=== PATIENT | male | born 1985 | race African-American/Black ===

== ENCOUNTER 2016-11-16 02:40 | Emergency (ER) | payer MEDICARE, OTHER ==
[~2016-11-16] VITALS: Ht 185.4 cm; Wt 95.3 kg
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
[2016-11-16 03:50] VITALS: BP 113/64
[2016-11-16 03:52] VITALS: BP 113/64
== END 2016-11-16 03:52 | disposition home or self-care (01) ==
LOC: EMR 03:22
DX: T83.010A Breakdown (mechanical) of cystostomy catheter, initial encounter (principal); G82.20 Paraplegia, unspecified; Y84.6 Urinary catheterization as the cause of abnormal reaction of the patient, or of later complication, without mention of misadventure at the time of the procedure; Y92.9 Unspecified place or not applicable; Y99.8 Other external cause status
CPT/HCPCS: 51702

== ENCOUNTER 2017-03-12 22:31 | Emergency (ER) | payer MEDICARE, OTHER ==
[~2017-03-12] VITALS: Ht 149.9 cm; Wt 90.7 kg
[2017-03-13] MEDS ORDERED: Norco 5mg/325mg tab ORAL ONE (02:45)
[2017-03-13] MEDS ORDERED: cefTRIAXone 1 GM in NS 55 ML IVPB ONE (04:15)
[2017-03-13 04:19] LABS: APPEARANCE,URINE CLEAR; KETONES,URINE 1+ (NEGATIVE); LEUKOCYTE ESTERASE ,URINE 3+ (NEGATIVE); NITRITE,URINE NEGATIVE (NEGATIVE); PH,URINE 8 (4.5-8.0); PROTEIN,URINE 2+ (NEGATIVE); UROBILINOGEN,URINE 4 MG/DL (0.0-1.0)
[2017-03-13 04:31] LABS: BACTERIA,URINE FEW /HPF; RBC,URINE TNTC /HPF (0 - 0); WBC,URINE 40-60 /HPF (0 - 0)
[2017-03-13 05:06] VITALS: BP 130/78
[2017-03-13 05:15] VITALS: BP 130/78
[2017-03-13] MEDS ORDERED: KEFLEX500 MG ORAL (05:51)
[2017-03-13] MEDS ORDERED: NITROFURANTOIN100 M2 ORAL (05:51)
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
== END 2017-03-13 05:15 | disposition left against medical advice (07) ==
LOC: EMR 23:42
DX: T83.028A Displacement of other urinary catheter, initial encounter (principal); Y83.8 Other surgical procedures as the cause of abnormal reaction of the patient, or of later complication, without mention of misadventure at the time of the procedure; Y92.89 Other specified places as the place of occurrence of the external cause; N39.0 Urinary tract infection, site not specified
CPT/HCPCS: 81003; 87086; 99284

== ENCOUNTER 2017-04-28 22:40 | Emergency (ER) | payer MEDICARE, OTHER ==
[~2017-04-28] VITALS: Ht 185.4 cm; Wt 88.5 kg
[~2017-04-28 22:40] MED LIST: KEFLEX500 MG ORAL; NITROFURANTOIN100 M2 ORAL
[2017-04-28 23:18] VITALS: BP 110/70
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
[2017-04-28 23:29] VITALS: BP 110/70
== END 2017-04-28 23:32 | disposition home or self-care (01) ==
LOC: EMR 22:59
DX: T83.090A Other mechanical complication of cystostomy catheter, initial encounter (principal); Y84.6 Urinary catheterization as the cause of abnormal reaction of the patient, or of later complication, without mention of misadventure at the time of the procedure; Y92.9 Unspecified place or not applicable
CPT/HCPCS: 51702

== ENCOUNTER 2017-06-17 23:33 | Emergency (ER) | payer MEDICARE, OTHER ==
[~2017-06-17] VITALS: Ht 185.4 cm; Wt 86.2 kg
[2017-06-17 23:50] VITALS: BP 97/63
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
[2017-06-18 01:09] LABS: APPEARANCE,URINE SLIGHTLY CLOUDY; KETONES,URINE NEGATIVE (NEGATIVE); LEUKOCYTE ESTERASE ,URINE 3+ (NEGATIVE); NITRITE,URINE POSITIVE (NEGATIVE); PH,URINE 7 (4.5-8.0); PROTEIN,URINE 2+ (NEGATIVE); UROBILINOGEN,URINE 4 MG/DL (0.0-1.0)
[2017-06-18 01:10] VITALS: BP 101/62
[2017-06-18 01:52] LABS: RBC,URINE TNTC /HPF (0 - 0); WBC,URINE 15-20 /HPF (0 - 0)
[2017-06-18 01:53] LABS: BACTERIA,URINE MODERATE /HPF; SQUAMOUS EPITHELIAL CELL,UR FEW /LPF (NONE/OCC)
[2017-06-21] MEDS ORDERED: BACTRIM DS TAB1 EAC1 ORAL (14:51)
== END 2017-06-18 01:10 | disposition home or self-care (01) ==
LOC: EMR 06-18 00:20
DX: Z46.6 Encounter for fitting and adjustment of urinary device (principal); Z89.612 Acquired absence of left leg above knee; Z89.611 Acquired absence of right leg above knee; Z87.828 Personal history of other (healed) physical injury and trauma
CPT/HCPCS: 81003; 87086; 87181; 99282

== ENCOUNTER 2017-07-17 19:13 | Emergency (ER) | payer MEDICARE, OTHER ==
[~2017-07-17] VITALS: Ht 61 cm; Wt 95.3 kg
[~2017-07-17 19:13] MED LIST changes: +BACTRIM DS TAB1 EAC1 ORAL
[2017-07-17 19:37] VITALS: BP 130/75
--- NOTE | 2017-07-17 19:38 | Emergency Room Report ---
History of Present Illness General Chief Complaint: General Complaint Source: Patient (KYM WAGNER M.D.) Present Illness HPI 31YOM with dislodged suprapubic cath since yesterday Fell out Went to [facility] - waited "for hours for Urologist" who never showed up Patient ?left AMA Has been here multiple times for replacement d/t dysfunction Here 06/18 - had replaced. had outpatient Abx Bactrim based on previous Urine Cx Denies abd pain, nausea/vomiting Still occasional urine from penis Has never followed up outpatient with Urologist in 1 year of suprapubic cath was here 06/18 for same based on providencia, was tx with bactrim outpatient which he completed (KYM WAGNER M.D.) Allergies: Coded Allergies: No Known Allergies (Unverified , 07/17/17) Patient History Past Medical History: see triage record, old chart reviewed Past Surgical History: other - Suprapubic cath Pertinent Family History: none Social History: Denies: smoking, alcohol use, drug use Immunizations: UTD Reviewed Nursing Documentation: PMH: Agreed, PSxH: Agreed (KYM WAGNER M.D.) Nursing Documentation-PMH Past Medical History: No History, Except For (KYM WAGNER M.D.) Review of Systems All Other Systems: negative except mentioned in HPI (KYM WAGNER M.D.) Physical Exam Sp02 EP Interpretation: reviewed, normal General Appearance: normal inspection, well appearing, no apparent distress, alert, GCS 15, non-toxic, obese, other - Patient without sensation to lower abdomen/lower extremities Head: normocephalic, atraumatic Eyes: bilateral eye PERRL, bilateral eye EOMI ENT: normal ENT inspection, hearing grossly normal, normal voice Neck: normal inspection, full range of motion, supple, no bony tend Respiratory: normal inspection, lungs clear, normal breath sounds, no respiratory distress, no retraction, no wheezing Cardiovascular #1: regular rate, rhythm, no edema Gastrointestinal: normal inspection, normal bowel sounds, non tender, soft, no guarding, no hernia Genitourinary: no CVA tenderness, other - Suprapubic site does NOT have catheter in place. Skin breakdown inferior to site. 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, speech normal Psychiatric: normal inspection, judgement/insight normal, mood/affect normal Skin: normal inspection, normal color, no rash (KYM WAGNER M.D.) Procedures Additional Procedure Procedure Narrative Suprapubic catheter Using sterile technique Tract cleaned on outside with betadine Sterile gloves worn Unable to pass 14F on multiple attempts ?tract closed Gomez also attempted to be placed via penis but met with resistance (KYM WAGNER M.D.) Medical Decision Making Diagnostic Impression: Primary Impression: Suprapubic catheter dysfunction Qualified Codes: T83.010D - Breakdown (mechanical) of cystostomy catheter, subsequent encounter ER Course Unable to replace in ED, ?closed tract Unable to pass gomez thru penis as well Dr Carranza consulted - came to ED and placed suprapubic catheter CT Abd/pelvis ordered to confirm position Signed out to Dr Geronimo at 1030 to followup results of CT (KYM WAGNER M.D.) ER Course Patient signed out to me. His suprapubic catheter was dislodged. The urologist came in because I had a hard time putting one in. He places to the catheter with difficulty. There was not much urine output. I did a bedside ultrasound and the bladder was actually empty. I order a CT scan to confirm placement. The catheter is in good position. Patient was discharged home. (KIRSTIE GERONIMO M.D.) CT/MRI/US Diagnostic Results CT/MRI/US Diagnostic Results : Imaging Test Ordered: CT abdomen and pelvis Impression read by radiologist. Catheter good position. (KIRSTIE GERONIMO M.D.) Status: improved (KYM WAGNER M.D.) Status: improved (KIRSTIE GERONIMO M.D.) Disposition: HOME, SELF-CARE Condition: Stable Scripts Trimethoprim/Sulfamethoxazole 160/800* (BACTRIM DS TABLET*) 1 Each Tablet 1 TAB ORAL Q12H, #14 TAB 0 Refills Prov: KIRSTIE GERONIMO M.D. 07/17/17 Additional Instructions: Followup with your DrCraig in 7 days. Return if symptom worsen. KYM WAGNER M.D. Jul 17, 2017 19:38 KIRSTIE GERONIMO M.D. Jul 17, 2017 23:20
[2017-07-17 21:45] VITALS: BP 128/86
[2017-07-17 23:00] VITALS: BP 133/84
[2017-07-17] MEDS ORDERED: BACTRIM DS TAB1 EAC1 ORAL (23:21)
[2017-07-17 23:31] VITALS: BP 133/84
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
== END 2017-07-17 23:31 | disposition home or self-care (01) ==
LOC: EMR 20:16
DX: T83.0 Mechanical complication of urinary catheter (principal); Y84.6 Urinary catheterization as the cause of abnormal reaction of the patient, or of later complication, without mention of misadventure at the time of the procedure; Z89.512 Acquired absence of left leg below knee; Z89.511 Acquired absence of right leg below knee
CPT/HCPCS: 51702; 74176; 99284

== ENCOUNTER 2017-12-10 11:41 | Emergency (ER) | payer MEDICARE, OTHER ==
[~2017-12-10] VITALS: Ht 121.9 cm; Wt 90.7 kg
[2017-12-10 13:20] VITALS: BP 127/80
--- NOTE | 2017-12-10 13:22 | Emergency Room Report ---
History of Present Illness General Chief Complaint: General Complaint Source: Patient Present Illness HPI 32-year-old male presents to the emergency department complaining of suprapubic urinary catheter dysfunction. Patient reports that approximately 4 hours ago his urinary catheter came out. Patient denies currently having something in place. Patient denies abdominal pain or tenderness. Patient denies fevers or chills. Patient states he usually will have his doctor come to his house when he has problems with his catheter however he is unable to see his urologist today. Allergies: Coded Allergies: No Known Allergies (Unverified , 07/17/17) Patient History Past Medical History: see triage record, other - bilateral btka Pertinent Family History: none Reviewed Nursing Documentation: PMH: Agreed, PSxH: Agreed Nursing Documentation-PMH Past Medical History: No History, Except For Review of Systems All Other Systems: negative except mentioned in HPI Physical Exam Vital Signs Date Time Temp Pulse Resp B/P (MAP) Pulse Ox O2 Delivery O2 Flow Rate FiO2 12/10/17 12:04 97.2 89 16 121/80 99 Room Air Sp02 EP Interpretation: reviewed, normal General Appearance: no apparent distress, alert, GCS 15, non-toxic Head: normocephalic, atraumatic ENT: hearing grossly normal, normal voice Neck: full range of motion Respiratory: lungs clear, normal breath sounds, speaking full sentences Cardiovascular #1: regular rate, rhythm Gastrointestinal: non tender, soft, non-distended, other - no presence of suprapubic catheter only ostomy site, pt. still has leg bag on . Rectal: deferred Genitourinary: normal inspection Musculoskeletal: other - bilateral below the knee amputations, wheelchair bound. Neurologic: alert, oriented x3, responsive, speech normal, grossly normal Psychiatric: judgement/insight normal Skin: normal color, warm/dry, well hydrated Medical Decision Making PA Attestation Dr. Liu is my supervising Physician whom patient management has been discussed with. Diagnostic Impression: Primary Impression: Suprapubic catheter dysfunction Qualified Codes: T83.010A - Breakdown (mechanical) of cystostomy catheter, initial encounter ER Course 32-year-old male presents to the emergency department complaining of suprapubic urinary catheter dysfunction. Patient reports that approximately 4 hours ago his urinary catheter came out. Patient denies currently having something in place. Patient denies abdominal pain or tenderness. Patient denies fevers or chills. Patient states he usually will have his doctor can't his house when he has problems with his catheter however he is unable to see his urologist today. Ddx considered but are not limited to UTi , Pyelo, STI, Stone, Cystitis, Cath blockage. Vital signs: are WNL, pt. is afebrile H&PE are most consistent with Displaced Supra-pubic urinary catheter. ORDERS: - none On last ED visit patient required emergent urologist intervention and placement of new catheter with guidewire due to difficulty in replacing urinary catheter. I involved supervising physician whom agreed to attempt replacement of urinary catheter under ultrasound guidance. 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 Discussed with patient that he would need to sign AMA if he leaves prior to suprapubic cath interventions. DISPOSITION: Pt. Requests AMA. - At this time the patient is requesting to leave AGAINST MEDICAL ADVICE. I believe that this patient has the capacity to make decisions on His own. I discussed with the patient the risks of leaving AMA. Some of these risks include delay in diagnosis and treatment, as well as worsening of symptoms, organ damage, and permanent disability or even . After discussing these risks with the patient. He continues to express His want to leave AGAINST MEDICAL ADVICE. I encouraged the patient to return at any time, and that he will be welcome here in the emergency department to continue medical management. Last Vital Signs Date Time Temp Pulse Resp B/P (MAP) Pulse Ox O2 Delivery O2 Flow Rate FiO2 12/10/17 12:04 97.2 89 16 121/80 99 Room Air Disposition: AGAINST MEDICAL ADVICE Condition: Unknown Additional Instructions: You are leaving AMA, before results of your diagnostic lab work are available. This can cause delayed diagnosis as well as treatment, and ultimately leading up to worsening of symptoms, damage to organs, permanent disability or even . You are encouraged to return to the ER at any time if you want to continue your evaluation Sandie Martin Dec 10, 2017 13:21
== END 2017-12-10 13:20 | disposition left against medical advice (07) ==
LOC: EMR 13:05
DX: T83.090A Other mechanical complication of cystostomy catheter, initial encounter (principal); Y84.6 Urinary catheterization as the cause of abnormal reaction of the patient, or of later complication, without mention of misadventure at the time of the procedure; Y92.9 Unspecified place or not applicable
CPT/HCPCS: 99282

== ENCOUNTER 2018-05-12 17:48 | Emergency (ER) | payer MEDICARE, OTHER ==
[~2018-05-12] VITALS: Ht 121.9 cm; Wt 86.2 kg
--- NOTE | 2018-05-12 19:28 | Emergency Room Report ---
History of Present Illness General Chief Complaint: General Complaint Source: Patient (Chicho Quinn) Present Illness HPI 52-year-old male patient presents ER requesting suprapubic catheter change. Reports his head catheter in since 2015, last changed Mar 26 2018. Reports normally goes to the urologist had changed however was out of town and missed his appointment this month. Reports next appointment at the end of May. Reports the "catheter is clogged", does not swollen now. Denies foul smell, hematuria. Denies fever, chest pain, abdominal pain, flank pain, vomiting. Denies other acute symptoms. Has previously been seen in this ER for similar complaints. (Chicho Quinn) Allergies: Coded Allergies: No Known Allergies (Unverified , 07/17/17) Patient History Past Medical History: see triage record Reviewed Nursing Documentation: PMH: Agreed; PSxH: Agreed (Chicho Quinn) Nursing Documentation-PMH Past Medical History: No History, Except For (Chicho Quinn) Review of Systems All Other Systems: negative except mentioned in HPI (Chicho Quinn) Physical Exam Vital Signs Date Time Temp Pulse Resp B/P (MAP) Pulse Ox O2 Delivery O2 Flow Rate FiO2 05/12/18 17:59 98.2 93 16 124/75 95 Room Air 98.2 Sp02 EP Interpretation: reviewed, normal General Appearance: well appearing, no apparent distress, alert, GCS 15, non- toxic Head: normocephalic, atraumatic Eyes: bilateral eye normal inspection, bilateral eye PERRL ENT: hearing grossly normal, normal pharynx, no angioedema, normal voice, uvula midline, moist mucus membranes Neck: full range of motion Respiratory: lungs clear, normal breath sounds, no rhonchi, no respiratory distress, no accessory muscle use, no wheezing, speaking full sentences Cardiovascular #1: regular rate, rhythm, no edema Gastrointestinal: non tender, soft, no mass, non-distended, no guarding, no rebound, other - presence of suprapubic catheter, no erythema or edema Genitourinary: no CVA tenderness Psychiatric: mood/affect normal Skin: no rash (Chicho Quinn) Medical Decision Making PA Attestation Dr. Root is my supervising Physician whom patient management has been discussed with. (Chicho Quinn) Diagnostic Impression: Primary Impression: Suprapubic catheter dysfunction ER Course Pt. presents to the ED requesting suprapubic catheter change. multiple differentials considered. Vital signs: are WNL, pt. is afebrile ER COURSE: Pulled on suprapubic catheter, does not appear to be dislodged. denies dysuria, hematuria, penile discharge. no fever, vomiting, does not require UA at this time. no erythema, no edema, no signs of infection. Per nurse, unable to flush catheter. Consult Dr. Root, will replace catheter. See Dr. Root's procedure note. Urine draining from catheter. Follow-up with urology. Patient okay for discharge to home. DISCHARGE: At this time pt is stable for d/c to home. Patient is resting comfortably, in no acute distress, nontoxic appearing, talking without difficulty. Patient to take medications as instructed Will provide with patient care instructions and any necessary prescriptions. Care plan and follow-up instructions provided. Patient instructed to follow-up with primary care provider in 3 - 5 days. Patient questions asked and answered. Patient reports understanding and agreement to treatment plan. ER precautions given. Patient instructed to return to ER immediately for any new or worsening of symptoms including but not limited to increasing SOB, persistent fever, chest pain, intractable vomiting. - Please note that this Emergency Department Report was dictated using sli.[email or web address] technology software, occasionally this can lead to erroneous entry secondary to interpretation by the dictation equipment. (Chicho Quinn) ER Course Procedure performed by tx Suprapubic catheter replacement A 20 Yi Balderas was placed 15 mL of sterile water injected into balloon Flushed easily with return of urine filling the bag No complications (Ramiro Root M.D.) Last Vital Signs Date Time Temp Pulse Resp B/P (MAP) Pulse Ox O2 Delivery O2 Flow Rate FiO2 05/12/18 17:59 98.2 93 16 124/75 95 Room Air 98.2 (Chicho Quinn) Disposition: HOME, SELF-CARE Condition: Stable Referrals: NON PHYSICIAN (PCP) Patient Instructions: Suprapubic Catheter Replacement, Care After Additional Instructions: Followup with primary care provider in 3 -5 days. Follow up with urology. Take medications as directed. Patient questions asked and answered. ER precautions given, patient instructed to return to ER immediately for any new or worsening of symptoms. Chicho Quinn May 12, 2018 19:28 Ramiro Root M.D. May 12, 2018 21:15
[2018-05-12 19:36] VITALS: BP 109/67
[2018-05-12 19:38] VITALS: BP 109/67
== END 2018-05-12 19:38 | disposition home or self-care (01) ==
LOC: EMR 18:20
DX: T83.098A Other mechanical complication of other urinary catheter, initial encounter (principal); Y84.6 Urinary catheterization as the cause of abnormal reaction of the patient, or of later complication, without mention of misadventure at the time of the procedure; Y92.009 Unspecified place in unspecified non-institutional (private) residence as the place of occurrence of the external cause
CPT/HCPCS: 99283

== ENCOUNTER 2018-06-04 00:12 | Emergency (ER) | payer MEDICARE, OTHER ==
[~2018-06-04] VITALS: Ht 185.4 cm; Wt 86.2 kg
[2018-06-04 01:24] VITALS: BP 101/64
--- NOTE | 2018-06-04 02:58 | Emergency Room Report ---
History of Present Illness General Chief Complaint: Male Urogenital Problems Source: Patient Present Illness HPI 32-year-old male presents for suprapubic catheter change. Patient is wheelchair -bound, status post bilateral AKA with suprapubic catheter. States he was changed hospital 3 weeks ago but is now clogged 1 day. Denies any pain. Denies any fevers chills. States that he is unable to see his urologist until July. Denies flank pain. No other aggravating relieving factors. Denies any other associated symptoms Allergies: Coded Allergies: No Known Allergies (Unverified , 07/17/17) Patient History Past Medical History: other - suprapubic catheter Past Surgical History: other - bilateral AKA Pertinent Family History: none Social History: Denies: smoking, alcohol use, drug use Immunizations: UTD Reviewed Nursing Documentation: PMH: Agreed; PSxH: Agreed Review of Systems All Other Systems: negative except mentioned in HPI Physical Exam Vital Signs Date Time Temp Pulse Resp B/P (MAP) Pulse Ox O2 Delivery O2 Flow Rate FiO2 06/04/18 00:15 99.1 102 18 101/64 96 Room Air 99.1 Sp02 EP Interpretation: reviewed, normal General Appearance: no apparent distress, alert, GCS 15, non-toxic Head: normocephalic Eyes: bilateral eye normal inspection, bilateral eye PERRL ENT: normal ENT inspection Neck: normal inspection Respiratory: normal inspection Cardiovascular #1: normal inspection Gastrointestinal: normal bowel sounds, non tender, soft, non-distended, no guarding, no rebound, other - supraupbic catheter site C/D/I Rectal: deferred Genitourinary: no CVA tenderness Musculoskeletal: other - bilateral AKA Neurologic: alert, oriented x3, responsive, speech normal Psychiatric: normal inspection Skin: normal inspection Lymphatic: normal inspection Procedures Additional Procedure Procedure Narrative Patient placed in supine position. Using sterile technique I deflated the balloon on the old catheter and removed the catheter. I subsequently replaced with a new Gomez catheter in sterile fashion. Balloon inflated and secured into place. Leg bag connected and urine flow noted. Patient tolerated procedure without complication Medical Decision Making Diagnostic Impression: Primary Impression: Suprapubic catheter dysfunction Qualified Codes: T83.010A - Breakdown (mechanical) of cystostomy catheter, initial encounter ER Course Hospital Course 32-year-old male presents ED for suprapubic catheter change Differential diagnoses include: obstruction, UTI, BPH Clinical course Patient placed on stretcher. After initial history and physical I replaced suprapubic catheter without complication I will provide patient with urology referral if he is unable to follow-up with his urologist Diagnosis - suprapubic catheter dysfunction Stable and discharged home with gomez + leg bag. Instructed to followup with PMD/urologist. Return to ED if symptoms recur or worsen Last Vital Signs Date Time Temp Pulse Resp B/P (MAP) Pulse Ox O2 Delivery O2 Flow Rate FiO2 06/04/18 01:24 99.1 18 101/64 96 Room Air 99.1 06/04/18 00:15 102 Status: improved Disposition: HOME, SELF-CARE Condition: Stable Referrals: Jason Mayorga M.D. Patient Instructions: Suprapubic Catheter Replacement, Care After Pedro Rai MD Jun 04, 2018 02:58
== END 2018-06-04 02:22 | disposition home or self-care (01) ==
LOC: EMR 00:46
DX: Z46.6 Encounter for fitting and adjustment of urinary device (principal); T83.011A Breakdown (mechanical) of indwelling urethral catheter, initial encounter; Z99.3 Dependence on wheelchair; Z89.512 Acquired absence of left leg below knee; Z89.511 Acquired absence of right leg below knee
CPT/HCPCS: 99283

== ENCOUNTER 2018-09-13 19:56 | Emergency (ER) | payer MEDICARE, OTHER ==
[~2018-09-13] VITALS: Ht 185.4 cm; Wt 88.5 kg
[2018-09-13] MEDS ORDERED: NORCO 10-325 T1 EACH ORAL (20:07)
--- NOTE | 2018-09-13 20:14 | Emergency Room Report ---
History of Present Illness General Chief Complaint: Sore Throat Source: Patient Present Illness HPI Patient is a 32-year-old male presented after increased cough and sore throat. Patient had reportedly had increased nonproductive cough. The patient was noted to have the no suprapubic catheter which had become clogged this morning. Patient presented for catheter change. He denies any vomiting. He denies any fever. Allergies: Coded Allergies: No Known Allergies (Unverified , 07/17/17) Patient History Past Medical History: see triage record Reviewed Nursing Documentation: PMH: Agreed; PSxH: Agreed Nursing Documentation-PMH Hx Neurological Problems: Yes - paraphlegia, bilateral aka, urinary retention Review of Systems All Other Systems: negative except mentioned in HPI Physical Exam Vital Signs Date Time Temp Pulse Resp B/P (MAP) Pulse Ox O2 Delivery O2 Flow Rate FiO2 09/13/18 19:59 99.1 103 16 128/72 98 Room Air General Appearance: well appearing, no apparent distress, obese Head: normocephalic, atraumatic ENT: hearing grossly normal, normal voice Neck: full range of motion, supple Respiratory: no respiratory distress, speaking full sentences, other - left base crackles no wheeze Gastrointestinal: normal inspection, normal bowel sounds, non tender, other - colostomy Musculoskeletal: other - bilateral aka Neurologic: alert, oriented x3, 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 The patient's catheter was changed under sterile technique. I replaced his catheter with 20 [place] catheter with good urine output. The patient was noted to have some cloudy urine and will be treated empirically with amoxicillin. The patient is advised follow-up with his primary care physician for further evaluation and recheck. The patient appears to have a viral respiratory infection. Last Vital Signs Date Time Temp Pulse Resp B/P (MAP) Pulse Ox O2 Delivery O2 Flow Rate FiO2 09/13/18 19:59 99.1 103 16 128/72 98 Room Air Status: improved Disposition: HOME, SELF-CARE Condition: Stable Scripts Guaifenesin/Dextromethorphan (Guaifenesin Dm Syrup) 5 Ml Syrup 1 TSP ORAL Q8H, #118 ML 0 Refills Prov: Lencho Fontenot MD 09/13/18 Amoxicillin* (AMOXIL*) 500 Mg Capsule 500 MG ORAL THREE TIMES A DAY, #21 CAP Prov: Lencho Fontenot MD 09/13/18 Lencho Fontenot MD Sep 13, 2018 20:13
[2018-09-13 20:19] VITALS: BP 128/72
[2018-09-13] MEDS ORDERED: AMOXICILLIN500 MG ORAL (20:44)
[2018-09-13] MEDS ORDERED: GUAIFENESIN DM118 M1 ORAL (20:44)
[2018-09-13 21:06] VITALS: BP 128/72
== END 2018-09-13 21:26 | disposition home or self-care (01) ==
LOC: EMR 20:20
DX: T83.018A Breakdown (mechanical) of other urinary catheter, initial encounter (principal); J18.9 Pneumonia, unspecified organism; G82.21 Paraplegia, complete; R33.9 Retention of urine, unspecified
CPT/HCPCS: 51702; 99283

== ENCOUNTER 2019-09-06 16:01 | Emergency (ER) | payer MEDICARE, OTHER ==
[~2019-09-06] VITALS: Ht 185.4 cm; Wt 86.2 kg
[~2019-09-06 16:01] MED LIST changes: +AMOXICILLIN500 MG ORAL; +GUAIFENESIN DM118 M1 ORAL; +NORCO 10-325 T1 EACH ORAL
[2019-09-06 16:57] VITALS: BP 110/64
--- NOTE | 2019-09-06 16:58 | NUR ---
ED Nurse Note: pt wheeled himself to ER from home with WC for suprapubic catheter change to 20Fr. pt aao x4 and on WC. calm and cooperative. skin dry but intact. pt has colostomy on Lt lower abdoman and both legs amputated and the sites are clean. no acute distress noted at this moment.
--- NOTE | 2019-09-06 17:20 | NUR ---
ED Nurse Note: suprapubic catheter changed to 20 Fr by BARRIE at bedside. inflated with 30 cc of NS.
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
[2019-09-06 17:28] VITALS: BP 115/74
--- NOTE | 2019-09-06 17:29 | NUR ---
ED Nurse Note: Pt cleared by health care Provider for discharge after suprapubic catheter started draining urine in the bag. DC instructions/prescription was given and explained to pt and verbalized understanding of teachings. All medical deviecs such as ID band removed. Pt is AAO x4, wheeled himself and left with all personal belongings.
== END 2019-09-06 17:28 | disposition home or self-care (01) ==
LOC: EMR 16:50
DX: T83.9XXA Unspecified complication of genitourinary prosthetic device, implant and graft, initial encounter (principal); G82.20 Paraplegia, unspecified; Z89.612 Acquired absence of left leg above knee; Z89.611 Acquired absence of right leg above knee; Y84.6 Urinary catheterization as the cause of abnormal reaction of the patient, or of later complication, without mention of misadventure at the time of the procedure; Y92.9 Unspecified place or not applicable
CPT/HCPCS: 51702; 99284

== ENCOUNTER 2019-12-31 14:04 | Emergency (ER) | payer MEDICARE, OTHER ==
[~2019-12-31] VITALS: Ht 185.4 cm; Wt 88.5 kg
[2019-12-31 14:07] VITALS: BP 116/76
--- NOTE | 2019-12-31 14:15 | NUR ---
ED Nurse Note: patient brought into ED by wheelchair by himself, reports his suprapubic catheter stopped draining since yeterday. patient is alert awake x4, hospital gown provided.
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
--- NOTE | 2019-12-31 14:32 | NUR ---
ED Nurse Note: DR Figueroa at bedside for suprapubic cather care
--- NOTE | 2019-12-31 14:51 | NUR ---
ED Nurse Note: UA SENT TO LAB
[2019-12-31 14:58] LABS: APPEARANCE,URINE SLIGHTLY CLOUDY; BILIRUBIN, URINE NEGATIVE (NEGATIVE); COLOR,URINE PALE YELLOW; GLUCOSE, URINE (UA) NEGATIVE (NEGATIVE); KETONES,URINE NEGATIVE (NEGATIVE); LEUKOCYTE ESTERASE ,URINE 3+ (NEGATIVE); NITRITE,URINE POSITIVE (NEGATIVE); PH,URINE 6 (4.5-8.0); PROTEIN,URINE 2+ (NEGATIVE); UROBILINOGEN,URINE 1 MG/DL (0.0-1.0)
--- NOTE | 2019-12-31 15:00 | NUR ---
ED Nurse Note: suprapubic cather changed by Dr. Figueroa 20FR 30CC.
--- NOTE | 2019-12-31 15:10 | NUR ---
ED Nurse Note: patient's phone number verified: [phone]
[2019-12-31 15:17] VITALS: BP 116/76
--- NOTE | 2019-12-31 15:17 | NUR ---
ER DISCHARGE NOTE: Patient is cleared to be discharged per BARRIE [place] pt is aox4, on room air, with stable vital signs. pt was given dc and prescription instructions, pt was able to verbalize understanding, pt id band removed without complications. pt left with his wheelchair. pt took all belongings.
[2020-01-03] MEDS ORDERED: BACTRIM DS TAB1 EAC1 ORAL (07:43)
== END 2019-12-31 15:17 | disposition home or self-care (01) ==
LOC: EMR 15:17
DX: T83.010A Breakdown (mechanical) of cystostomy catheter, initial encounter (principal); R82.81 Pyuria; G82.20 Paraplegia, unspecified; Z93.3 Colostomy status; Z89.612 Acquired absence of left leg above knee; Z89.611 Acquired absence of right leg above knee
CPT/HCPCS: 81003; 87086; 87181; 99283; 99284

== ENCOUNTER → 2020-03-01 | Emergency (ER) | payer MEDICARE, OTHER ==
[~2020-03-01] VITALS: Ht 152.4 cm; Wt 95.3 kg
[2020-03-01 15:35] VITALS: BP 120/71
[2020-03-01 15:52] LABS: BILIRUBIN, URINE NEGATIVE (NEGATIVE); COLOR,URINE PALE YELLOW; GLUCOSE, URINE (UA) NEGATIVE (NEGATIVE); KETONES,URINE NEGATIVE (NEGATIVE); LEUKOCYTE ESTERASE ,URINE 3+ (NEGATIVE); NITRITE,URINE POSITIVE (NEGATIVE); PH,URINE 9 (4.5-8.0); PROTEIN,URINE 3+ (NEGATIVE); UROBILINOGEN,URINE NORMAL MG/DL (0.0-1.0)
[2020-03-01 15:58] LABS: APPEARANCE,URINE SLIGHTLY CLOUDY
--- NOTE | 2020-03-01 16:06 | NUR ---
ED Nurse Note: inserted subprapubic catheter, performed by charge nurse.
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
== END | disposition home or self-care (01) ==
LOC: EMR 15:46
DX: T83.098A Other mechanical complication of other urinary catheter, initial encounter (principal); N39.0 Urinary tract infection, site not specified; Z99.3 Dependence on wheelchair; G82.20 Paraplegia, unspecified; X58.XXXA Exposure to other specified factors, initial encounter; Y92.9 Unspecified place or not applicable; Z89.619 Acquired absence of unspecified leg above knee
CPT/HCPCS: 51702; 81003; 87086; 99284

== ENCOUNTER 2020-07-31 15:17 | Emergency (ER) | payer MEDICARE, OTHER ==
[~2020-07-31] VITALS: Ht 182.9 cm; Wt 88.5 kg
[~2020-07-31 15:17] MED LIST changes: +CEPHALEXIN500 MG ORAL
[2020-07-31 15:40] VITALS: BP 102/61
--- NOTE | 2020-07-31 15:40 | NUR ---
ED Nurse Note: Patient wheeled himself in to ER, stated need urinary catheter changed due to catheter being clogged since last night. Patient AAO x4, VSS at this time
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
--- NOTE | 2020-07-31 16:40 | NUR ---
ED Nurse Note: suprapubic catheter was changed by Reginaldo [place], 20F patient tolerated procedure well.
[2020-07-31] MEDS ORDERED: CEPHALEXIN500 MG ORAL (17:07)
[2020-07-31 17:14] VITALS: BP 102/61
--- NOTE | 2020-07-31 17:16 | NUR ---
ED Nurse Note: Pt cleared by health care Provider for discharge. DC instructions/prescription was given and explained to pt and verbalized understanding of teachings. All medical deviecs such as ID band removed. Pt is AAO x4, ambulatory and left with all personal belongings.
[2020-07-31 17:33] LABS: APPEARANCE,URINE VERY CLOUDY; BILIRUBIN, URINE NEGATIVE (NEGATIVE); GLUCOSE, URINE (UA) NEGATIVE (NEGATIVE); KETONES,URINE 1+ (NEGATIVE); LEUKOCYTE ESTERASE ,URINE 3+ (NEGATIVE); NITRITE,URINE NEGATIVE (NEGATIVE); PH,URINE 8 (4.5-8.0); PROTEIN,URINE 2+ (NEGATIVE); UROBILINOGEN,URINE 4 MG/DL (0.0-1.0)
[2020-07-31 17:39] LABS: COLOR,URINE YELLOW
== END 2020-07-31 16:15 | disposition home or self-care (01) ==
LOC: EMR 15:45
DX: T83.098A Other mechanical complication of other urinary catheter, initial encounter (principal); N39.0 Urinary tract infection, site not specified; G82.20 Paraplegia, unspecified; Z89.512 Acquired absence of left leg below knee; Z89.511 Acquired absence of right leg below knee
CPT/HCPCS: 51702; 81003; 87086; 99284

== ENCOUNTER 2020-08-29 14:18 | Emergency (ER) | payer MEDICARE, OTHER ==
[~2020-08-29] VITALS: Ht 152.4 cm; Wt 93.0 kg
[2020-08-29 14:38] VITALS: BP 132/74
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
[2020-08-29 14:57] VITALS: BP 137/72
== END 2020-08-29 14:57 | disposition home or self-care (01) ==
LOC: EMR 14:38
DX: T83.010A Breakdown (mechanical) of cystostomy catheter, initial encounter (principal); X58.XXXA Exposure to other specified factors, initial encounter; Y92.9 Unspecified place or not applicable; Z89.612 Acquired absence of left leg above knee; Z89.611 Acquired absence of right leg above knee; G82.20 Paraplegia, unspecified
CPT/HCPCS: 51702; 99284

== ENCOUNTER 2020-09-20 14:53 | Emergency (ER) | payer MEDICARE, OTHER ==
[~2020-09-20] VITALS: Ht 185.4 cm; Wt 93.0 kg
[2020-09-20 15:08] VITALS: BP 147/87
--- NOTE | 2020-09-20 15:18 | NUR ---
ED Nurse Note: Patient from home and wheeled himself due to suprapubic catheter change size Fr20. Per pt, he always change his cath once a month. Noted foul smell odor coming out from suprapubic cath. Patient is AAO x4, amputated bilateral legs.
--- NOTE | 2020-09-20 15:28 | NUR ---
ED Nurse Note: Primary RN assisted Dr Das at the bed side for changing of suprapubic gomez cath 20 Fr. No urine draining post insertion. Drinking water provided to patient per ERMD order.
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
--- NOTE | 2020-09-20 15:40 | NUR ---
ED Nurse Note: Collected urine then sent.
[2020-09-20] MEDS ORDERED: CIPROFLOXACIN500 M2 ORAL (15:48)
[2020-09-20 15:55] VITALS: BP 142/80
--- NOTE | 2020-09-20 15:55 | NUR ---
ER DISCHARGE NOTE: Patient is cleared to be discharged per ERMD, pt is aox4, on room air, with stable vital signs. pt was given dc and prescription instructions, pt was able to verbalize understanding, pt id band removed without complications. pt is able to wheel himself out of ER. pt took all belongings.
== END 2020-09-20 15:55 | disposition home or self-care (01) ==
LOC: EMR 15:15
DX: T83.098A Other mechanical complication of other urinary catheter, initial encounter (principal); G82.20 Paraplegia, unspecified; Z89.612 Acquired absence of left leg above knee; Z89.611 Acquired absence of right leg above knee
CPT/HCPCS: 51702; 87086; 87181; 99284

== ENCOUNTER 2020-09-29 16:29 | Emergency (ER) | payer MEDICARE, OTHER ==
[~2020-09-29] VITALS: Ht 185.4 cm; Wt 93.0 kg
[~2020-09-29 16:29] MED LIST changes: +CIPROFLOXACIN500 M2 ORAL
[2020-09-29 17:10] VITALS: BP 117/74
--- NOTE | 2020-09-29 17:10 | NUR ---
ED Nurse Note: Pt wheeled in to ED from home d/t suprapubic catheter mulfunction. Pt is AOx4, calm and cooperative to carem, pt's VSS, on RA, afebrile on triage. Per pt, his catheter was recently changed over a week ago but complains that he thinks its malfunctioning right now.
--- NOTE | 2020-09-29 17:39 | NUR ---
ED Nurse Note: urine collected
[2020-09-29 17:56] LABS: APPEARANCE,URINE CLOUDY; BILIRUBIN, URINE NEGATIVE (NEGATIVE); COLOR,URINE PALE YELLOW; GLUCOSE, URINE (UA) NEGATIVE (NEGATIVE); KETONES,URINE NEGATIVE (NEGATIVE); LEUKOCYTE ESTERASE ,URINE 3+ (NEGATIVE); NITRITE,URINE POSITIVE (NEGATIVE); PH,URINE 8 (4.5-8.0); PROTEIN,URINE 2+ (NEGATIVE); UROBILINOGEN,URINE 1 MG/DL (0.0-1.0)
--- NOTE | 2020-09-29 18:41 | NUR ---
ED Nurse Note: subprapubic cath ukrainian [address] maciel, pt tolerated well. No clots noted. Pt denies any pain as of now.
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
[2020-09-29 19:09] VITALS: BP 117/74
[2020-09-29] MEDS ORDERED: CEPHALEXIN500 MG ORAL (19:09)
--- NOTE | 2020-09-29 19:09 | NUR ---
ER DISCHARGE NOTE: Patient is cleared to be discharged per ERPA, pt is aox4, on room air, with stable vital signs. pt was given dc and prescription instructions, pt was able to verbalize understanding, pt id band removed. pt is able to ambulate with steady gait. pt took all belongings.
== END 2020-09-29 19:09 | disposition home or self-care (01) ==
LOC: EMR 17:20
DX: T83.018A Breakdown (mechanical) of other urinary catheter, initial encounter (principal); N39.0 Urinary tract infection, site not specified; G82.20 Paraplegia, unspecified; Z89.612 Acquired absence of left leg above knee; Z89.611 Acquired absence of right leg above knee
CPT/HCPCS: 81003; 87086; 99283

== ENCOUNTER 2020-12-03 13:28 | Emergency (ER) | payer MEDICARE, OTHER ==
[~2020-12-03] VITALS: Ht 91.4 cm; Wt 104.3 kg
--- NOTE | 2020-12-03 13:38 | NUR ---
ED Nurse Note: wheelchair bound pt presents to ED for suprapubic catheter change. pt states that he had it placed one month ago, uses a size 20 maldivian. pt also states that he has an appt with urologist on 12/13, also reports that he was seen and treated at PCP office 2 days ago for UTI, is currently taking sulfamethoxazole. pt denies pain, fevers or chills
[2020-12-03 13:40] VITALS: BP 114/68
--- NOTE | 2020-12-03 14:08 | NUR ---
ED Nurse Note: Dr. Fontenot at pt bedside for suprapubic urinary catheter change
[2020-12-03 14:33] VITALS: BP 114/68
--- NOTE | 2020-12-03 14:34 | NUR ---
supra pubic catheter drainig at bedside bag discharged home with instruction to follow up with pmd and urologist
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
== END 2020-12-03 14:36 | disposition home or self-care (01) ==
LOC: EMR 13:58
DX: T83.098A Other mechanical complication of other urinary catheter, initial encounter (principal); N39.0 Urinary tract infection, site not specified; Z99.3 Dependence on wheelchair; G82.20 Paraplegia, unspecified; Z89.612 Acquired absence of left leg above knee; Z89.611 Acquired absence of right leg above knee; E66.9 Obesity, unspecified; Z68.45 Body mass index [BMI] 70 or greater, adult; X58.XXXA Exposure to other specified factors, initial encounter; Y92.9 Unspecified place or not applicable
CPT/HCPCS: 51702; 99282

== ENCOUNTER 2021-01-01 16:27 | Emergency (ER) | payer MEDICARE, OTHER ==
[~2021-01-01] VITALS: Ht 182.9 cm; Wt 95.3 kg
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
[2021-01-01 17:14] VITALS: BP 101/70
--- NOTE | 2021-01-01 17:14 | NUR ---
ER DISCHARGE NOTE: Patient is cleared to be discharged per ERMD, pt is aox4, on room air, with stable vital signs. pt was given dc instructions, pt was able to verbalize understanding. pt wheeled out in his wheelchair with all belongings.
--- NOTE | 2021-01-01 17:15 | NUR ---
BARRIE changed his suprapubic catheter out to a 20french
== END 2021-01-01 17:10 | disposition home or self-care (01) ==
LOC: EMR 17:05
DX: T83.198A Other mechanical complication of other urinary devices and implants, initial encounter (principal); Z99.3 Dependence on wheelchair; Z89.612 Acquired absence of left leg above knee; Z89.611 Acquired absence of right leg above knee; G82.20 Paraplegia, unspecified; E66.9 Obesity, unspecified; X58.XXXA Exposure to other specified factors, initial encounter; Y92.9 Unspecified place or not applicable
CPT/HCPCS: 51702; 99282